=== PATIENT | female | born 2000 | race African-American/Black ===

== ENCOUNTER → 2024-01-15 08:54 | Outpatient (REF) | payer BC, SELFPAY | LOC: WDC 08:54 | PROVIDERS: ATTENDING PHYSICIAN Family Medicine | DX: N63.10 Unspecified lump in the right breast, unspecified quadrant (principal); N63.14 Unspecified lump in the right breast, lower inner quadrant | CPT/HCPCS: 76642 ==

== ENCOUNTER 2025-08-07 23:01 | Emergency (ER) | payer BC, SELFPAY ==
[2025-08-07 23:07] VITALS: BP 127/76
[2025-08-07 23:17] VITALS: BP 123/68
[2025-08-07 23:24] VITALS: BMI 26.5
--- NOTE | 2025-08-07 23:39 | ED.GENMED ---
History of Present Illness
General
Chief Complaint: Chest Pain
Time Seen by Provider: 08/07/25 23:17
History of Present Illness
History of Present Illness:
25-year-old female with no past medical history presents to the emergency department for evaluation of sudden onset of epigastric pain beginning 20 minutes prior to arrival. Pain is colicky in nature but is severe when it strikes. Localizes pain
to the epigastrium and lower chest. Feels nauseous but is not having vomiting. Was out to eat at a restaurant earlier tonight and ate a burger. No prior abdominal surgeries. Retching and writhing on arrival to the ED
Review of Systems
Review of Systems
Allergies reviewed?: Yes
All Other Systems: ROS reviewed and negative except as documented in HPI and ROS
Phy Exam
Physical Exam
Physical Exam:
GEN: Retching and writhing
HEENT: Oral mucosa moist, no scleral icterus
Cardiac: Regular rate and rhythm, no murmur
Lung: No respiratory distress, no tachypnea, lungs clear to auscultation bilaterally
Abdomen: Soft, grossly nontender to palpation
MSK: No gross deformity or injuries
Skin: Good color, no pallor or jaundice, no rashes
Neuro: AO x3, moves all extremities freely
Psych: Calm, cooperative
Scores
Heart Score for Chest Pain Patients
STEMI patient?: Not applicable
Course
Orders/Labs/Results
Orders:
Orders
08/07/25 23:02
EKG [Electrocardiogram (*1)] Urgent
Reason for Study: Chest Pain
EKG- Treatment ONCE
08/07/25 23:22
Ketorolac [Toradol] 15 mg IV NOW STA
Test Result ONCE
08/07/25 23:29
Complete Blood Count/With Diff Urgent
Comprehensive Metabolic Panel Urgent
HCG, Serum Qualitative Screen Urgent
Lipase Urgent
Manual Differential Urgent
08/08/25 00:18
US Abdomen Complete/Upper Urgent
Comment:
Reason For Exam: epigastric pain
Abnormal Lab Results
08/07/25
23:29
WBC 12.5 H 10^3/uL
(4.8-10.8)
RBC 3.74 L 10^6/uL
(4.20-5.40)
Hgb 11.2 L g/dL
(12.0-16.0)
Hct 32.9 L %
(37.0-47.0)
Plt Count 410 H 10^3/uL
(130-400)
Segmented Neutrophils 27 L %
(42-75)
Monocytes (Manual) 10 H %
(2-9)
Potassium 3.2 L mmol/L
(3.5-5.1)
Chloride 108 H mmol/L
(98-107)
Glucose 133 H mg/dl
(70-99)
08/07/25 23:29
08/07/25 23:29
Vital Signs
Initial and Last Documented VS:
Initial Vital Signs
Temp Pulse Resp BP Pulse Ox
97.6 F 98 18 127/76 99
08/07/25 23:07 08/07/25 23:07 08/07/25 23:07 08/07/25 23:07 08/07/25 23:07
Last Documented Vital Signs
Temp Pulse Resp BP Pulse Ox
98.4 F 89 14 111/72 100
08/08/25 01:54 08/08/25 01:54 08/08/25 01:54 08/08/25 01:54 08/08/25 01:54
MDM/Problems Addressed
MDM/Problems Addressed:
Patient with abrupt onset of severe upper abdominal pain beginning approximately 2 hours after eating a cheeseburger. Ultrasound reveals mobile gallstones suggesting cholelithiasis as the ultimate source. Recommend low-fat diet and outpatient
surgical follow-up. Pain improved after Toradol and she is suitable for discharge home
Comment
Comment:
EKG independently interpreted by me shows a normal sinus rhythm at a rate of [address] changes suspicious for ischemia and a normal QT interval
*Pulse Oximetry
SaO2: 99
Oxygen Mode of Delivery: Room air
Patient hypoxic: no
*Critical Care Note
Total Time (30-74mins, 75-104mins- exclusive of procedures): Not Applicable
ED Attending Note
-
Portions of this chart may have been created with voice recognition software.� Occasional wrong word or��sound alike� substitutions may have occurred due to the inherent limitations of voice recognition software.
Discharge Plan
Departure
Patient Disposition: Home (Routine Discharge)
Date of Disposition: 08/08/25
Time of Disposition: 01:48
Patient with high blood pressure during this ER visit?: No
Discharge Problem:
Cholelithiasis
Instructions: Low-fat diet, Gallstones - ED (DC)
Referrals:
Estevan Stark MD [Active, Surgical]
Interventions
Interventions:
*Risk Screen - Suicide Last Done: 08/07/25 23:07
*General Assessment Last Done: 08/07/25 23:11
*Neglect/Abuse Screening Last Done: 08/07/25 23:07
*ED- Fall Risk Assessment Last Done: 08/07/25 23:11
*ED COVID-19 Vaccine History Last Done: 08/08/25 00:09
*ED Influenza Vaccine History Last Done: 08/08/25 00:09
*Nursing Disposition Last Done: 08/08/25 01:54
ED- Cardiac Assessment Last Done: 08/07/25 23:31
Discharge Date and Time
Discharge Date/Time: 08/08/25 01:56
Print Language: POLISH
[2025-08-07] MEDS: TORADOL 15 MG IV (23:45)
[2025-08-08] VITALS: BP 119/68
[2025-08-08 00:01] LABS: HCG, Serum Qualitative Screen Negative
[2025-08-08 00:03] LABS: Hematocrit 32.9 % (37.0-47.0); Hemoglobin 11.2 g/dL (12.0-16.0); Mean Corp Hgb Conc. 34.0 g/dL (33.0-37.0); Mean Corpuscular Volume 88.0 fL (81.0-99.0); Platelet Count 410 10^3/uL (130-400); Red Cell Dist. Width 11.5 % (11.5-14.5)
[2025-08-08 00:13] LABS: ALT (SGPT) 15 U/L (0-35); AST (SGOT) 23 U/L (14-36); Albumin 4.3 g/dl (3.5-5.0); Alkaline Phosphatase 53 U/L (38-126); Blood Urea Nitrogen 17 mg/dl (7-17); Calcium 8.7 mg/dl (8.4-10.2); Carbon Dioxide 23 mmol/L (22-30); Chloride 108 mmol/L (98-107); Estimated Creatinine Clearance 111 ml/min; Glucose 133 mg/dl (70-99); Lipase 171 U/L (23-300); Potassium 3.2 mmol/L (3.5-5.1); Sodium 138 mmol/L (135-145); Total Protein 7.2 g/dl (6.3-8.2); eGFR > 60.00
[2025-08-08 00:58] LABS: Absolute Neutrophils -Man Diff 3.3 10^3/uL (1.4-6.5)
[2025-08-08 00:59] LABS: Normal RBC Morphology Yes; Platelets Checked Yes; Total Cells Counted 100
[2025-08-08 01:00] VITALS: BP 93/56
[2025-08-08 01:54] VITALS: BP 111/72
== END 2025-08-08 01:56 | disposition home or self-care (01) ==
LOC: EMR 23:01
PROVIDERS: Physician Assistant; EMERGENCY PHYSICIAN Emergency Medicine
DX: K80.20 Calculus of gallbladder without cholecystitis without obstruction (principal)
CPT/HCPCS: 99284; 96374; 76700; 80053; 83690; 84703; 85025; 93005